=== PATIENT | male | born 1970 | race Caucasian/White ===

== ENCOUNTER → 2017-03-26 | Emergency (ER) | payer SELFPAY ==
[~2017-03-26] VITALS: Ht 180.3 cm; Wt 102.5 kg
[~2017-03-26] MED LIST: CT SWABBABLE VALVE TRANS SET 1 EA INFUS.SET MC ONE; IOHEXOL-350 100 ML VIAL IV ONE; IV NS 0.9% 250 ML IV ONE; IV NS 0.9% 500 ML BAG IV ONE; IV NS 0.9% 500 ML IV ONE; IV SET PRIMARY 1 EA INFUS.SET MC ONE
--- NOTE | 2017-03-26 11:37 | NUR ---
PT BIB [facility] C/O MIDEPIGASTRIC CP, 06/08, SQUEEZING AND SEVERE IN CHARACTER, RADIATING TO BACK. ONSET WHEN PT WOKE UP AROUND 0600. RESP APPEAR EVEN UNLABORED, THOUGH PT REPORTS THAT IT IS "HARD TO TAKE A DEEP BREATH". SKIN WARM NONDIAPHORETIC. NO OTHER COMPLAINTS. ABD SOFT, SLIGHTLY TENDER IN RUQ. IN ER BED 07 ON MONITOR.
--- NOTE | 2017-03-26 11:52 | NUR ---
US bedside at this time, pain releived to 4/10 from 9/10, VS stable
[2017-03-26 11:56] LABS: BASOPHILS # (AUTO) 0.1 /CMM (0.0-0.2); BASOPHILS % (AUTO) 0.7 % (0.0-2.0); EOSINOPHILS # (AUTO) 0.3 /CMM (0.0-0.7); EOSINOPHILS % (AUTO) 3.9 % (0.0-6.0); HEMATOCRIT 35 % (39-51); HEMOGLOBIN 11.1 g/dL (13.5-17.5); LYMPHOCYTES # (AUTO) 2.1 /CMM (0.8-4.8); LYMPHOCYTES % (AUTO) 26.9 % (20.0-44.0); MEAN CORPUSCULAR HEMOGLOBIN 21 PG (26.0-33.0); MEAN CORPUSCULAR HGB CONC 32 g/dl (31.0-36.0); MEAN CORPUSCULAR VOLUME 68 fL (80-96); MONOCYTES # (AUTO) 0.6 /CMM (0.1-1.30); NEUTROPHILS # (AUTO) 4.7 /CMM (1.8-8.9); NEUTROPHILS % (AUTO) 60.5 % (43.0-81.0); PLATELET COUNT (AUTO) 294 /CMM (150-450); RED BLOOD CELL COUNT(AUTO) 5.23 MIL/uL (4.5-6.0); WHITE BLOOD COUNT (AUTO) 7.8 K/uL (4.3-11.0)
[2017-03-26 12:05] LABS: CALCIUM, SERUM 9.1 mg/dL (8.5-10.1); CARBON DIOXIDE 31 mmol/L (21-32); CHLORIDE 104 mmol/L (98-107); CREATININE 1.1 mg/dL (0.6-1.3); GLUCOSE 97 mg/dL (74-106); POTASSIUM 4.5 mmol/L (3.5-5.1); SODIUM SERUM 138 mmol/L (136-145); UREA NITROGEN, BLOOD 13 mg/dL (7-18)
[2017-03-26 12:08] LABS: INR 0.94 (0.87-1.13); PROTHROMBIN TIME 9.8 SECS (9.5-12.7)
[2017-03-26 12:11] LABS: ALANINE AMINOTRANSFERASE 23 U/L (12-78); ALBUMIN 3.5 g/dL (3.4-5.0); ALKALINE PHOSPHATASE 55 U/L (46-116); ASPARTATE AMINOTRANSFERASE 18 U/L (15-37); BILIRUBIN,DIRECT 0.1 mg/dL (0.0-0.2); BILIRUBIN,TOTAL 0.4 mg/dL (0.2-1.0); LIPASE 80 U/L (73-393)
[2017-03-26 12:13] LABS: TROPONIN I < 0.017 ng/mL (0.00-0.056)
[2017-03-26 13:01] LABS: EOSINOPHILS % (MANUAL) 5 % (0-4); LYMPHOCYTES % (MANUAL) 28 % (16-48); MONOCYTES % (MANUAL) 6 % (0-11.0); NEUTROPHILS % (MANUAL) 61 (42-76)
--- NOTE | 2017-03-26 13:12 | NUR ---
RESTING QUIETLY, NAD NOTED. VSS. REPORTS VERY MINIMAL CHEST PAIN AT THIS TIME.
--- NOTE | 2017-03-26 14:24 | NUR ---
IV S/C INTACT. BANDAGE APPLIED
[2017-03-26 14:25] VITALS: BP 148/103
--- NOTE | 2017-03-26 14:25 | NUR ---
Patient discharged to home in stable condition. Written and verbal after care instructions given. Patient verbalizes understanding of instruction.
== END | disposition home or self-care (01) ==
LOC: ER 11:31
DX: R10.13 Epigastric pain (principal); I10 Essential (primary) hypertension
CPT/HCPCS: 36415; 71010; 71275; 76705; 80048; 80076; 83690; 84484; 85025; 85378; 85730; 93005; 99285; A4606; J7040; J7050; Q9967; Z7610